=== PATIENT | male | born 1960 | race African-American/Black ===

== ENCOUNTER → 2020-11-19 | Outpatient (CLI) | payer MEDICAID ==
[2019-02-11 15:00] VITALS: BP 145/80
== END ==
LOC: LAB 10:29
PROVIDERS: ATTEND Internal Medicine Gastroenterology
DX: Z01.812 Encounter for preprocedural laboratory examination (principal); Z12.11 Encounter for screening for malignant neoplasm of colon; Z20.822 Contact with and (suspected) exposure to COVID-19
CPT/HCPCS: U0003

== ENCOUNTER → 2020-11-21 | Day surgery (SDC) | payer MEDICAID ==
[~2020-11-21] MED LIST: IV RINGERS,LACTATED 1000ML 1,000 ML IV ONE; LIDOCAINE 2% PF 5 ML VIAL. ONE; PROPOFOL 10 MG/ML (20ML) VIAL. IV ONE
--- NOTE | 2020-11-21 09:28 | CONS ---
DATE OF CONSULTATION: 11/21/2020 GASTROENTEROLOGY CONSULTATION REFERRING PHYSICIAN: Dr. Renae. REASON FOR CONSULTATION: Colorectal screening. HISTORY OF PRESENT ILLNESS: A 60-year-old -Welsh male with past medical history significant for osteoarthrosis, status post hip replacement, is seen for screening colon exam. Bowel habits are regular without diarrhea or constipation. There has been no hematochezia, constipation, diarrhea, weight and appetite are stable. There is no family history of colon polyps or colon cancer. PAST MEDICAL HISTORY: Borderline hypertension, history of TIA. ALLERGIES: None. MEDICATIONS: None. SOCIAL HISTORY: He is a smoker and nondrinker. PAST SURGICAL HISTORY: Significant for hip replacement. FAMILY HISTORY: Noncontributory. REVIEW OF SYSTEMS: HEENT: There is no decrease in visual acuity issues. CARDIAC: There is history of borderline hypertension. PULMONARY: History of tobaccoism. NEUROLOGIC: History of transient ischemic attack. PSYCHIATRIC: No mood swings, depression, insomnia. RENAL: No dysuria, frequency, hematuria. MUSCULOSKELETAL: History of osteoarthrosis, status post hip replacement. DERMATOLOGIC: No skin rashes or pruritus. GASTROINTESTINAL: See history of present illness. ENDOCRINE: No history of heat or cold intolerance, thyroid disease. HEMATOLOGIC: No bleeding, bruising, coagulopathy. RENAL: No dysuria, frequency, hematuria. PHYSICAL EXAMINATION: GENERAL: Reveals a well-nourished, well-developed -Welsh male who is alert, cooperative, in no acute distress. VITAL SIGNS: Temperature 98, pulse 80, respiratory rate 20 and pulse ox 98%. LUNGS: Clear. CARDIOVASCULAR: Reveals an S1, S2 without S3, S4 or appreciable murmur. ABDOMEN: Reveals a soft abdomen, normal bowel sounds, without appreciable hepatosplenomegaly. EXTREMITIES: Reveals no cyanosis, clubbing or edema. IMPRESSION AND DISCUSSION: Colorectal screening is warranted at this time. Risks and benefits of procedure including the risk of hemorrhage and perforation regarding operation were discussed. The patient is willing to proceed at this time. Thank you, Dr. Renae, for allowing us to consult and participate in this patient's care. EVARISTO KHAN MD DR: AISHWARYA/paola JOB#: [id number] / [id number]
[2020-11-21 09:48] VITALS: BP 130/66
== END | disposition home or self-care (01) ==
LOC: ENDOS 07:07
PROVIDERS: ATTEND Internal Medicine Gastroenterology
DX: Z12.11 Encounter for screening for malignant neoplasm of colon (principal); K64.0 First degree hemorrhoids; K57.30 Diverticulosis of large intestine without perforation or abscess without bleeding; M19.90 Unspecified osteoarthritis, unspecified site; I10 Essential (primary) hypertension; E78.00 Pure hypercholesterolemia, unspecified; G47.30 Sleep apnea, unspecified; F17.210 Nicotine dependence, cigarettes, uncomplicated; Z79.899 Other long term (current) drug therapy; Z98.890 Other specified postprocedural states
CPT/HCPCS: 45378; J2704

== ENCOUNTER 2020-12-14 20:04 | Emergency (ER) | payer MEDICAID ==
[~2020-12-14] VITALS: Ht 182.9 cm; Wt 104.0 kg
[2020-12-14] MEDS ORDERED: LIDOCAINE 2% Multi-Dose 20 ML VIAL. IJ ONE (21:00)
[2020-12-14] MEDS ORDERED: DIPH,PERTUSS(ACELL),TET VAC/PF 0.5 ML SYRINGE. VAX IM ONE (21:00)
[2020-12-14] MEDS ORDERED: CEPH500C PO (21:03)
--- NOTE | 2020-12-14 21:04 | ED.ADGEN ---
Past Medical History Past Medical History: Hypertension Past Surgical History: No Surgical History Smoking Status: Current Every Day Smoker Alcohol Use: Heavy Drug Use: Marijuana General Adult EDM: Chief Complaint: LACERATION/AVULSION HPI: HPI: Patient is a 60 year old AA male who presents emergency department with complaints of a laceration to the dorsal aspect of his left hand at the base of his left thumb. Patient reports that he was using a utility knife to try the cut away at a door when he accidentally cut his left hand. Patient states his last tetanus shot was greater than 5 years ago. He denies any decreased range of motion, numbness, tingling, or decreased sensation of the affected hand. Patient is dominantly right-handed, he currently rates the pain a 5 out of 10 on the pain scale, he denies any alleviating factors the pain is worse with palpation and movement. Review of Systems: Review of Systems: Complete ROS is negative unless otherwise noted in HPI. Current Medications: Current Medications Medications (Trade) Dose Ordered Sig/Lenny Start Time Stop Time Status Last Admin Dose Admin Diphtheria/ Tetanus/Acell Pertussis (ADACEL TDap SYRINGE) 0.5 ml ONCE ONCE 12/14/20 21:00 12/14/20 21:01 Allergies: Allergies: Allergies Coded Allergies Type Severity Reaction Last Updated Verified No Known Drug Allergies 01/09/20 No Physical Exam: PE: See Above Constitutional: Well developed, well nourished, no acute distress, non-toxic appearance. [] HENT: Normocephalic, atraumatic, bilateral external ears normal, nose normal. [] Eyes: PERRLA, EOMI, conjunctiva normal, no discharge. [] Neck: Normal range of motion, no stridor. [] Cardiovascular:Heart rate regular rhythm Lungs & Thorax: Respirations even and unlabored, no retractions, no respiratory distress Skin: Warm, dry, no erythema, no rash; 2.5 cm laceration to the palmar aspect of the proximal end of the left thumb, no visible foreign body, bleeding controlled, no visible tendons. [] Extremities: Left thumb: Full extension and flexion, strength 5/5, normal sensation, no cyanosis, ROM intact, no edema. [] Neurologic: Alert and oriented X 3, no focal deficits noted. [] Psychologic: Affect normal, judgement normal, mood normal. [] Current Patient Data: Vital Signs: Vital Signs Date Time Temp Pulse Resp B/P (MAP) Pulse Ox O2 Delivery O2 Flow Rate FiO2 12/14/20 20:10 98.0 97 16 161/85 (110) 98 Room Air 98.0 EKG: EKG: [] Heart Score: C/O Chest Pain: No Risk Scores: Score 0 - 3: 2.5% MACE over next 6 weeks - Discharge Home Score 4 - 6: 20.3% MACE over next 6 weeks - Admit for Clinical Observation Score 7 - 10: 72.7% MACE over next 6 weeks - Early Invasive Strategies Radiology/Procedures: Radiology/Procedures: Laceration Repair by me: Anesthesia: 2% lidocaine locally Location: Left thumb Tendon/Joint/Nerves: No injury Foreign body: None detected after copious irrigation and exploration with NS and chlorhexidine Technique: 5 simple Interrupted Sutures with 4-0 Ethilon Complexity: No subcutaneous sutures/mucosal repair/edge excision Post Closure Length: 2.5 cm Patient's bleeding was easily controlled in the department and there is no indication of anemia. No evidence of compartment syndrome, neurologic injury, vascular injury, open joint, tendon laceration, or foreign body. Patient is appropriate for outpatient follow up. [] [] Course & Med Decision Making: Course & Med Decision Making Pertinent Labs and Imaging studies reviewed. (See chart for details) [] Meliza Disclaimer: Meliza Disclaimer: This electronic medical record was generated, in whole or in part, using a voice recognition dictation system. Departure Departure Impression: Primary Impression: Laceration of left thumb Additional Impression: Need for Tdap vaccination Disposition: 01 DC HOME SELF CARE/HOMELESS Condition: STABLE Referrals: NO PCP (PCP) Patient Instructions: Laceration Care, Adult, [id number] Additional Instructions: Fill the prescription and take it as directed. Keep the area clean and dry. You may take Tylenol or ibuprofen as needed for pain. Keep the dressing that was placed today on for 24 hours then change the dressing twice a day and apply antibiotic ointment to the area. Follow-up with your primary care doctor, or return to the emergency room in 10-14 days to have the sutures removed, sooner if you develop signs of infection including: redness, warmth, drainage, or a fever. Agustin [facility] [address] [address] [facility] [address] [place] [address] [facility] [address] [place] [address] [facility] [address] [place] [address] [facility] [address] [place] [address] [facility] [address] [place] [address] Rick[facility] [address] [place] [address] [facility] [address] [place] [address] [facility] [address] [place] [address] [facility] [address] [place] [address] Scripts Cephalexin (CEPHALEXIN) 500 Mg Capsule 1 CAP PO TID for 7 Days, #21 CAP 0 Refills Prov: SHARDA PERDOMO [employer] 12/14/20 Problem Qualifiers Primary Impression: Laceration of left thumb Encounter type: initial encounter Damage to nail status: without damage Foreign body presence: without foreign body Qualified Codes: S61.012A - Laceration without foreign body of left thumb without damage to nail, initial encounter SHARDA [employer] Dec 14, 2020 21:04
[2020-12-14] MEDS ORDERED: CEPHALEXIN 250 MG CAPSULE. PO ONE (21:15)
[2020-12-14 21:25] VITALS: BP 146/72
== END 2020-12-14 21:25 | disposition home or self-care (01) ==
LOC: ER 20:04
DX: S61.012A Laceration without foreign body of left thumb without damage to nail, initial encounter (principal); I10 Essential (primary) hypertension; F17.200 Nicotine dependence, unspecified, uncomplicated; F10.20 Alcohol dependence, uncomplicated; Y90.9 Presence of alcohol in blood, level not specified; W26.0XXA Contact with knife, initial encounter; Y93.89 Activity, other specified; Y92.89 Other specified places as the place of occurrence of the external cause; Y99.8 Other external cause status
CPT/HCPCS: 12001; 90471; 90715; 99283